=== PATIENT | female | born 1970 | race Caucasian/White ===

== ENCOUNTER → 2016-09-07 | Outpatient (CLI) | payer OTHER ==
[2016-09-07 08:29] LABS: Blood Urea Nitrogen 16 mg/dL (7-17); Non-African American GFR(MDRD) >60 (>60 ml/min/1.73 sqM)
--- NOTE | 2016-09-07 12:19 | CT ---
EXAMINATION TYPE: CT ChestAbdPelvis w con DATE OF EXAM: 09/07/2016 10:25 AM INDICATION: Hodgkins Lymphoma COMPARISON: 09/07/2015 CT DLP: 2010 mGycm CONTRAST: Performed with Oral Contrast and with IV Contrast, patient injected with 100 ml mL of Omnipaque 300. TECHNIQUE: Axial images at 5 mm thick sections. Reconstructed images in the coronal plane. Delayed images through the kidneys. FINDINGS: CT CHEST: Portion of the thyroid visualized is some mild heterogeneity within the mid right lobe thyroid. This is stable. There is a stable posterior left apical peripheral 0.7 cm nodule. Series 4 there is a 0.4 cm thickeni ng of the left pleural margin. Right middle lobe density appears stable suspicious No enlarged mediastinal or hilar adenopathy is evident. The ascending aorta diameter at the level of the main pulmonary artery is 3.2 cm. The main pulmonary artery diameter at the bifurcation is 2.[address] ABDOMEN: Liver: Normal Spleen: Normal Pancreas: Normal Adrenal glands: The adrenal glands are normal. Gallbladder: Surgically absent. Kidneys: No masses are evident. No hydronephrosis is present. No cysts are present. Delayed images were obtained through the kidneys, which remain unremarkable. Aorta: Vascular calcification is within the aorta. Inferior vena cava: Normal. CT PELVIS: There is a 0.8 cm lymph node in the left obturator canal. Suspicious iliac chain or inguin al adenopathy is not evident. Loops of bowel within the abdomen and pelvis are normal. There are loops of bowel which are incom pletely distended or lack oral contrast limiting their evaluation. Appendix: Normal as visualized. Urinary bladder: Normal. Genitourinary structures: Uterus is not identified. A 1.6 cm right ovarian cyst may be present. Serie s 3 image 1 3 Osseous structures: No suspicious lytic or sclerotic lesions. IMPRESSIONS: 1. No suspicious enlarged lymphadenopathy. CT criteria. 2. 1.6 cm right ovarian cyst. 3. Stable lung nodules.
== END | disposition home or self-care (01) ==
LOC: RADCTMAIN 07:47
PROVIDERS: ATTEND Internal Medicine Hematology & Oncology
DX: C81.90 Hodgkin lymphoma, unspecified, unspecified site (principal); N83.201 Unspecified ovarian cyst, right side; R91.8 Other nonspecific abnormal finding of lung field
CPT/HCPCS: 82565; 84520; 71260; 74177; 36415; Q9967

== ENCOUNTER → 2017-03-10 | Outpatient (CLI) | payer OTHER ==
[2017-03-10 11:40] LABS: Blood Urea Nitrogen 11 mg/dL (7-17); Non-African American GFR(MDRD) >60 (>60 ml/min/1.73 sqM)
--- NOTE | 2017-03-10 15:39 | CT ---
EXAMINATION TYPE: CT ChestAbdPelvis w con DATE OF EXAM: 03/10/2017 INDICATION: lymphoma follow up COMPARISON: 09/07/2016 CT DLP: 1021.5 mGycm CONTRAST: Performed with Oral Contrast and with IV Contrast, patient injected with 100 mL of Omnipaque 300. TECHNIQUE: Axial images at 5 mm thick sections. Reconstructed images in the coronal plane. Delayed images through the kidneys. FINDINGS: CT CHEST: Portion of the thyroid visualized is normal. There is a 0.4 cm pleural-based nodule in the posterior left upper lobe. This area appears smaller th an the comparison. Scattered lymph nodes are within the axillary regions appear stable. No enlarging lymphadenopathy is evident. There is a stable small pretracheal lymph node present No enlarged mediastinal or hilar adenopathy is evident. The ascending aorta diameter at the level of the main pulmonary artery is 2.8 cm. The main pulmonary artery diameter at the bifurcation is 2.[address] ABDOMEN: Liver: Normal Spleen: Normal Pancreas: Normal Adrenal glands: The adrenal glands are normal. Gallbladder: Surgically absent Kidneys: No masses are evident. No hydronephrosis is present. No cysts are present. Delayed images were obtained through the kidneys, which remain unremarkable. Aorta: Vascular calcification is within the aorta. Inferior vena cava: Normal. CT PELVIS: Loops of bowel within the abdomen and pelvis are normal. There are loops of bowel which are incom pletely distended or lack oral contrast limiting their evaluation. Fecal debris is within the colon. Appendix: Not visualized Urinary bladder: Normal. Genitourinary structures: There is thickening through the distal vaginal region. Pelvic examination i s recommended. Consider the possibility of anal anomaly. Perirectal adenopathy is not identified. Osseous structures: No suspicious lytic or sclerotic lesions. IMPRESSIONS: 1. There appears to be some increase in thickening in the region of the anus and lower perineal regio n. Direct visualization and pelvic exam is recommended. 2. Enlarging lymphadenopathy is not identified. Scattered small lymph nodes are discussed above.
== END | disposition home or self-care (01) ==
LOC: RADCTMAIN 10:45
PROVIDERS: ATTEND Internal Medicine Hematology & Oncology
DX: C81.98 Hodgkin lymphoma, unspecified, lymph nodes of multiple sites (principal)
CPT/HCPCS: 82565; 84520; 71260; 74177; 36415; Q9967

== ENCOUNTER 2017-04-06 07:14 | Day surgery (SDC) | payer OTHER ==
[2017-04-04 14:16] VITALS: BMI 33.4
[~2017-04-06 07:14] MED LIST: LACTATED RINGERS 1,000 ML IV SCH; LIDOCAINE 1% 20 ML VIAL (10MG/ML) FOR IV START INTRADERMA PRN
[2017-04-06 07:35] VITALS: TEMP 97.9
[2017-04-06 07:42] LABS: Glucose,Whole Blood 254 mg/dL (75-99)
[2017-04-06] MEDS ORDERED: PROPOFOL 10 MG/ML 20 ML VIAL IV ONE (07:48)
[2017-04-06] MEDS ORDERED: LIDOCAINE 1% INJ 10MG/ML (20 ML MDV) ONE (07:48)
--- NOTE | 2017-04-06 07:53 | P.GSHP ---
History of Present Illness H&P Date: 04/06/17 Chief Complaint: Diarrhea, proctitis This is a 46-year-old female who had a recent change in her bowel habits. The patient had frequent bowel movement. She had a CAT scan performed shows thickening of the rectum and descending colon. She presents today for colonoscopy. Past Medical History Past Medical History: Cancer, Diabetes Mellitus Additional Past Medical History / Comment(s): HX HODGKINS LYMPHOMA W/ CHEMO- 2011. RECENT ? CAT SCAN. History of Any Multi-Drug Resistant Organisms: MRSA Date of last positivie culture/infection: 2011 MDRO Source:: SHOULDERS Past Surgical History: Cholecystectomy, Orthopedic Surgery, Tubal Ligation Additional Past Surgical History / Comment(s): RT SHOULDER SURGERY. JYOTI OOPHORECTOMY. Past Anesthesia/Blood Transfusion Reactions: No Reported Reaction Smoking Status: Current every day smoker - Past Family History Mother Family Medical History: Cancer Brother(s) Family Medical History: Cancer Medications and Allergies Home Medications Medication Instructions Recorded Confirmed Type metFORMIN HCL [Glucophage] 500 mg PO BID 05/27/14 04/06/17 History oxyCODONE-APAP 10-325MG [Percocet 1 tab PO Q6HR PRN 04/04/17 04/06/17 History 10-325 mg] Allergies Allergy/AdvReac Type Severity Reaction Status Date / Time No Known Allergies Allergy Verified 04/04/17 13:47 Surgical - Exam Vital Signs Temp Pulse Resp BP Pulse Ox 97.9 F 84 16 117/79 95 04/06/17 07:29 04/06/17 07:29 04/06/17 07:29 04/06/17 07:29 04/06/17 07:29 - General well developed, no distress - Eyes PERRL - ENT normal pinna - Neck no masses - Respiratory normal expansion - Cardiovascular Rhythm: regular - Abdomen Abdomen: soft, non tender Results Computed tomography scan shows thickening of the rectum and descending colon - Labs Abnormal Lab Results - Last 24 Hours (Table) 04/06/17 Range/Units 07:39 POC Glucose (mg/dL) 254 H (75-99) mg/dL Assessment and Plan Plan: Proctitis, colitis. We'll perform colonoscopy.
--- NOTE | 2017-04-06 08:10 | P.OP ---
Date of Procedure: 04/06/17 Preoperative Diagnosis: Proctitis Postoperative Diagnosis: Normal colonoscopy Rectal biopsy pathology pending Procedure(s) Performed: Colonoscopy Anesthesia: MAC Surgeon: Murali Sotelo Pathology: other (Rectum) Condition: stable Disposition: PACU Description of Procedure: The patient's placed on the endoscopy table in the lateral position. She received IV sedation. Digital rectal exam was performed which revealed no abnormalities. Flexible colonoscope was then placed patient anus and passed throughout the entire colon. The ileocecal valve was visualized. The cecum, ascending and transverse colon appeared normal. In the descending and sigmoid colon appeared normal. Scope was then brought back the rectum and this appeared normal. Due the patient's CAT scans findings of thickening rectum and a random biopsies were performed. Scope was then withdrawn through the anus and removed from the patient.
[2017-04-06 08:18] VITALS: RESP 18
[2017-04-06 08:21] LABS: Glucose,Whole Blood 280 mg/dL (75-99)
[2017-04-06 08:33] VITALS: BP 111/76; PULSE 75
== END 2017-04-06 08:43 | disposition home or self-care (01) ==
LOC: ORWHC2ENDO 07:14
PROVIDERS: ATTEND Surgery
DX: R19.7 Diarrhea, unspecified (principal); E11.9 Type 2 diabetes mellitus without complications; F17.200 Nicotine dependence, unspecified, uncomplicated; Z79.84 Long term (current) use of oral hypoglycemic drugs; Z85.72 Personal history of non-Hodgkin lymphomas; Z86.14 Personal history of Methicillin resistant Staphylococcus aureus infection
CPT/HCPCS: 88305; 45380; J2001; J2704

== ENCOUNTER 2021-03-11 07:00 | Day surgery (SDC) | payer MEDICARE, OTHER ==
[2021-03-08 13:20] VITALS: BMI 33.6
[~2021-03-11 07:00] MED LIST changes: -LIDOCAINE 1% 20 ML VIAL (10MG/ML) FOR IV START INTRADERMA PRN
[2021-03-11 07:17] VITALS: TEMP 97.8
[2021-03-11] MEDS ORDERED: LACTATED RINGERS 1,000 ML IV ONE (07:17)
[2021-03-11 07:26] LABS: Glucose,Whole Blood 66 mg/dL (75-99)
[2021-03-11] MEDS ORDERED: DEXTROSE 50% SYRINGE 50 ML IVP ONE (07:30)
[2021-03-11] MEDS ORDERED: PROPOFOL 10 MG/ML 20 ML VIAL IV ONE (07:57)
--- NOTE | 2021-03-11 08:03 | P.GSHP ---
History of Present Illness H&P Date: 03/11/21 Chief Complaint: Screening Colonoscopy 's is a 50-year-old female who presents today for screening colonoscopy. Patient denies any significant GI complaints. Past Medical History Past Medical History: Cancer, Diabetes Mellitus Additional Past Medical History / Comment(s): HX HODGKINS LYMPHOMA W/ CHEMO- 2011. History of Any Multi-Drug Resistant Organisms: MRSA Date of last positivie culture/infection: 2011 MDRO Source:: SHOULDERS Past Surgical History: Cholecystectomy, Hysterectomy, Orthopedic Surgery, Tubal Ligation Additional Past Surgical History / Comment(s): RT SHOULDER SURGERY. JYOTI OOPHORECTOMY. Past Anesthesia/Blood Transfusion Reactions: No Reported Reaction Smoking Status: Current every day smoker - Past Family History Mother Family Medical History: Cancer Brother(s) Family Medical History: Cancer Medications and Allergies Home Medications Medication Instructions Recorded Confirmed Type metFORMIN HCL [Glucophage] 500 mg PO BID 05/27/14 03/08/21 History Ibuprofen 200 mg PO DAILY PRN 03/08/21 03/08/21 History Insulin (Unkn. Name) 5 units INJ 1200 03/08/21 03/08/21 History Allergies Allergy/AdvReac Type Severity Reaction Status Date / Time No Known Allergies Allergy Verified 03/08/21 13:13 Surgical - Exam Vital Signs Temp Pulse Resp BP Pulse Ox 97.8 F 80 18 111/73 98 03/11/21 07:16 03/11/21 07:16 03/11/21 07:16 03/11/21 07:16 03/11/21 07:16 - General well developed, well nourished, no distress - Eyes PERRL - ENT normal pinna - Neck no masses - Respiratory normal expansion - Cardiovascular Rhythm: regular - Abdomen Abdomen: soft, non tender Results - Labs Abnormal Lab Results - Last 24 Hours (Table) 03/11/21 Range/Units 07:24 POC Glucose (mg/dL) 66 L (75-99) mg/dL Assessment and Plan Assessment: We'll perform screening colonoscopy.
--- NOTE | 2021-03-11 08:17 | P.OP ---
Date of Procedure: 03/11/21 Preoperative Diagnosis: Screening colonoscopy Procedure(s) Performed: Mild diverticulosis Poor colonic prep Anesthesia: MAC Surgeon: Murali Sotelo Pathology: none sent Condition: stable Disposition: PACU Description of Procedure: The patient's placed on the endoscopy table in the lateral position. She received IV sedation. Digital rectal exam was performed which revealed no abnormalities. The possible colonoscope was then placed patient anus and passed throughout the entire colon. Ileocecal valve was visualized. The patient had a large amount of liquid stool colon which limited the view of the mucosa. The ascending colon, transverse colon and descending colon appeared normal. In the sigmoid colon was a few scattered diverticuli. The scope was then brought back the rectum and this appeared normal. Scope was withdrawn for patient.
[2021-03-11 08:27] LABS: Glucose,Whole Blood 122 mg/dL (75-99)
[2021-03-11 08:36] VITALS: RESP 16
[2021-03-11 08:49] VITALS: BP 111/71; PULSE 76
== END 2021-03-11 09:03 | disposition home or self-care (01) ==
LOC: ORWHC2ENDO 07:00
PROVIDERS: ATTEND Surgery
DX: Z12.11 Encounter for screening for malignant neoplasm of colon (principal); K57.90 Diverticulosis of intestine, part unspecified, without perforation or abscess without bleeding; E11.9 Type 2 diabetes mellitus without complications; Z85.71 Personal history of Hodgkin lymphoma; Z92.21 Personal history of antineoplastic chemotherapy; F17.210 Nicotine dependence, cigarettes, uncomplicated; Z79.4 Long term (current) use of insulin; Z79.899 Other long term (current) drug therapy; F32.9 Major depressive disorder, single episode, unspecified
CPT/HCPCS: J2704; G0121

== ENCOUNTER → 2021-10-18 | Outpatient (CLI) | payer MEDICARE ==
--- NOTE | 2021-10-20 15:00 | ECHOF ---
Referral Reason:R01.1 MEASUREMENTS -------- HEIGHT: 154.9 cm WEIGHT: 79.4 kg BP: IVSd: 0.9 cm (0.6 - 1.1) LVIDd: 4.1 cm (3.9 - 5.3) LVPWd: 1.0 cm (0.6 - 1.1) IVSs: 1.1 cm LVIDs: 2.8 cm LVPWs: 1.3 cm LAESV Index (A-L): 14.44 ml/m Ao Diam: 3.1 cm (2.0 - 3.7) AV Cusp: 1.8 cm (1.5 - 2.6) LA Diam: 2.8 cm (2.7 - 3.8) MV EXCURSION: 19.197 mm (> 18.000) MV EF SLOPE: 126 mm/s (70 - 150) EPSS: 1.0 cm MV E Mode: 0.76 m/s MV DecT: 156 ms MV A Mode: 1.13 m/s MV E/A Ratio: 0.67 RAP: 5.00 mmHg RVSP: 8.66 mmHg FINDINGS -------- This was a technically good study. The left ventricular size is normal. Left ventricular wall thickness is normal. Overall left vent ricular systolic function is normal with, an EF between 55 - 60 %. The diastolic filling pattern is normal for the age of the patient 11.08. The right ventricle is normal in size. The left atrial size is normal. Normal LA size by volume 22+/-6 ml/m2. The right atrial size is normal. The aortic valve is trileaflet and appears structurally normal. There is trace mitral regurgitation. The tricuspid valve appears structurally normal. Trace tricuspid regurgitation present. Right yessenia tricular systolic pressure is normal at < 35 mmHg. There is no pulmonic regurgitation present. The aortic root size is normal. Normal inferior vena cava with normal inspiratory collapse consistent with estimated right atrial pre ssure of 5 mmHg. There is no pericardial effusion. CONCLUSIONS -------- 1. The left ventricular size is normal. 2. Left ventricular wall thickness is normal. 3. Overall left ventricular systolic function is normal with, an EF between 55 - 60 %. 4. The diastolic filling pattern is normal for the age of the patient 11.08 5. There is trace mitral regurgitation. 6. Trace tricuspid regurgitation present. 7. There is no pericardial effusion. [employer]SEM[employer]Y SUPERVISOR: Mitra Gunn RDCS
== END | disposition home or self-care (01) ==
LOC: RADECHMAIN 14:42
PROVIDERS: ATTEND Family Medicine
DX: I08.1 Rheumatic disorders of both mitral and tricuspid valves (principal)
CPT/HCPCS: 93306

== ENCOUNTER 2022-09-28 12:46 | Day surgery (SDC) | payer MEDICARE ==
[2022-09-23 14:52] VITALS: BMI 30.2
[~2022-09-28 12:46] MED LIST changes: +ALPRAZolam 0.25 MG TAB PO PRN; +ALPRAZolam 0.5 MG TAB PO PRN; +ASPIRIN 325 MG TAB PO PRN; +HEPARIN SODIUM,PORCINE 10,000 UNIT in SODIUM CHLORIDE 0.9% 1,000 ML IRRIGATION PRN; +HEPARIN SODIUM,PORCINE 2,500 UNIT in SODIUM CHLORIDE 0.9% 250 ML IRRIGATION PRN; -LACTATED RINGERS 1,000 ML IV SCH; +SODIUM CHLORIDE 0.9% 1,000 ML in EMPTY BAG 1 BAG IV ONE; +ZOLPIDEM 5 MG TAB PO PRN
[2022-09-28 13:07] LABS: Glucose,Whole Blood 108 mg/dL (70-110)
[2022-09-28 13:12] VITALS: RESP 16; TEMP 98.8
[2022-09-28] MEDS ORDERED: SODIUM CHLORIDE 0.9% 1,000 ML IV ONE (13:12)
[2022-09-28 13:36] LABS: Basophils # (A) 0.2 k/uL (0-0.2); Basophils % (A) 1 %; Eosinophils # (A) 0.4 k/uL (0-0.7); Eosinophils % (A) 3 %; HCT 48.6 % (34.0-46.0); Lymphocytes # (A) 4.7 k/uL (1.0-4.8); Lymphocytes % (A) 31 %; MCH 30.9 pg (25.0-35.0); MCHC 32.9 g/dL (31.0-37.0); Mean Platelet Volume 8.3; Monocytes # (A) 0.7 k/uL (0-1.0); Monocytes % (A) 5 %; Neutrophils # (A) 8.5 k/uL (1.3-7.7); Neutrophils % (A) 57 %; Platelet Count 314 k/uL (150-450); RBC 5.17 m/uL (3.80-5.40); RDW 13.2 % (11.5-15.5); WBC 14.8 k/uL (3.8-10.6)
[2022-09-28 13:48] LABS: African American GFR (CKD) >90 (>60 ml/min/1.73 sqM); Anion Gap 8 mmol/L; Blood Urea Nitrogen 12 mg/dL (7-17); Calcium 9.1 mg/dL (8.4-10.2); Carbon Dioxide 27 mmol/L (22-30); Chloride 105 mmol/L (98-107); Glucose 106 mg/dL (74-99); Non-African American GFR(CKD) >90 (>60 ml/min/1.73 sqM); Sodium 140 mmol/L (137-145)
[2022-09-28 14:22] LABS: Potassium 4.2 mmol/L (3.5-5.1)
[2022-09-28] MEDS ORDERED: VERAPAMIL 2.5 MG/ML 2 ML AMP ONE (14:40)
[2022-09-28] MEDS ORDERED: MIDAZOLAM 2 MG/2 ML VIAL IVP ONE (14:51)
[2022-09-28] MEDS ORDERED: fentaNYL (PF) 50 MCG/1 ML VIAL IVP ONE (14:51)
[2022-09-28] MEDS ORDERED: LIDOCAINE 1% INJ 10MG/ML (5 ML VIAL-PF) INTRAARTIC ONE (14:52)
[2022-09-28] MEDS ORDERED: fentaNYL (PF) 50 MCG/ML 2 ML AMP ONE (14:54)
[2022-09-28] MEDS ORDERED: VERAPAMIL SYRINGE (5 MG/10 ML) INTRAARTER ONE (14:57)
[2022-09-28] MEDS ORDERED: HEPARIN SODIUM 1,000 UN/ML (10ML VL) IV ONE (14:58)
[2022-09-28] MEDS ORDERED: NITROGLYCERIN 1000MCG/10ML SYRINGE INTRAARTER ONE (14:58)
[2022-09-28] MEDS ORDERED: IOPAMIDOL-370 125ML BTL INJ ONE (15:24)
--- NOTE | 2022-09-28 15:45 | P.OP ---
Date of Procedure: 09/28/22 Description of Procedure: Preoperative diagnosis: [Left subclavian stenosis, severe peripheral artery disease [place] 3] Postoperative diagnosis: Same Procedure: [#1 ultrasound guided right radial artery access #2 aortic arch angiogram #3 aortogram with runoff #4 moderate conscious sedation 22 minutes, personally monitored certified RN administration with hemodynamic monitoring] Surgeon: Justine France D.O. EBL: Less than 5 mL[] IV fluids: [See records] Urine output: [Not measured] Drains: [None] Complications: [None] Condition: [Stable to recovery] Operative indication and findings: [Patient is a 52-year-old female has severe peripheral arterial disease with worsened right lower extremity than the left. She can't walk very far prior to having pain. She was found to have absent femoral pulse on the right therefore an aortogram performed. Given her findings as well as her absent left radial pulse, she was offered an aortogram. Risks and benefits were discussed. She seemingly understood and wished to proceed] Procedure in detail: [Patient was taken to the special suite and placed in supine position. The right breast was prepped and draped in usual sterile fashion. A procedure time was performed, all parties are in agreement. Using ultrasound, the right radial artery was identified. It was found be patent and compressible without evidence of overt calcification. Permanent images stored. The skin overlying was anesthetized. A micro-Rx needle was used and using Seldinger technique a 5 Center sheath was placed. Catheters and wires were used access and select the ascending aorta. An aortogram was performed of the aortic arch. Catheters and wires were then utilized to select the abdominal aorta. Aortogram was performed and sequential runoffs. Catheters and wires were then removed. The sheath was removed and a TR band was placed. Findings the aorta appeared normal in course and caliber. There is a type I aorta. Visualized portions of the right subclavian, vertebral, common carotid and brachiocephalic artery appear patent. The orifice then visualized portions of the left carotid artery appear patent without significant disease. The left subclavian has a high-grade narrowing a few centimeters beyond its takeoff measuring about 95%. There is flow beyond this. There is no easily visualize vertebral artery. Further portions of the aorta thoracic section appear normal. The abdominal aorta appears patent. There are multiple visualized lumbar ar teries. Bilateral renal arteries appear patent without significant disease. The superior mesenteric artery appears patent. On the right, there is occlusion of the common iliac artery with reconstitution via the internal iliac vessels. Further portions of the external iliac and common femoral artery appear patent but diminutive. On the left there are some areas of high-grade stenosis of the common iliac artery or further visualized portions of the internal and external iliac artery appear patent without significant disease. On the left the common, superficial and deep femoral arteries appear patent without significant disease. On the right, the common, superficial and deep femoral arteries appear patent however severely diminished and contrast flow and visualization. The bilateral superficial femoral and popliteal arteries appear patent without significant disease. On the left, there appears to be a high takeoff of the anterior tibial artery via the mid popliteal artery. There is a long TP trunk. Vessels are visualized midcalf. On the right, again appears to have a high anterior tibial artery takeoff long tibial peroneal trunk. There is very difficult visualization of vessels beyond the midcalf due to lack of contrast flow.] Plan - Discharge Summary Discharge Rx Participant: No New Discharge Prescriptions: No Action Losartan [Cozaar] 25 mg PO DAILY Insulin Glargine,Hum.rec.anlog [Lantus Solostar Pen] 45 units SQ W/LUNCH Rosuvastatin [Crestor] 5 mg PO DAILY Gabapentin 300 mg PO TID PRN PRN Reason: Pain Zolpidem [Ambien] 5 mg PO HS PRN PRN Reason: Insomnia Escitalopram [Lexapro] 10 mg PO DAILY Discharge Medication List Escitalopram [Lexapro] 10 mg PO DAILY 09/23/22 [History] Gabapentin 300 mg PO TID PRN 09/23/22 [History] Insulin Glargine,Hum.rec.anlog [Lantus Solostar Pen] 45 units SQ W/LUNCH 09/23/22 [History] Losartan [Cozaar] 25 mg PO DAILY 09/23/22 [History] Rosuvastatin [Crestor] 5 mg PO DAILY 09/23/22 [History] Zolpidem [Ambien] 5 mg PO HS PRN 09/23/22 [History] Activity/Diet/Wound Care/Special Instructions: Resume regular activity. Follow-up in 1-2 weeks. Resume regular diet. Resume home medications. May shower in 48 hours. Discharge Disposition: HOME SELF-CARE
--- NOTE | 2022-09-28 15:52 | IR ---
EXAMINATION TYPE: IR angio abdominal w runoff DATE OF EXAM: 09/28/2022 COMPARISON: NONE HISTORY: Fluoroscopy time. Fluoroscopy was provided to the referring clinician.
[2022-09-28 18:10] VITALS: BP 102/70; PULSE 73
== END 2022-09-28 19:42 | disposition home or self-care (01) ==
LOC: CATHCVL 12:46 → 6NMEDSUR 15:13 → CATHCVL 19:42
PROVIDERS: ATTEND Surgery
DX: I70.223 Atherosclerosis of native arteries of extremities with rest pain, bilateral legs (principal); I77.1 Stricture of artery; Z85.71 Personal history of Hodgkin lymphoma; Z92.21 Personal history of antineoplastic chemotherapy; E11.51 Type 2 diabetes mellitus with diabetic peripheral angiopathy without gangrene; Z79.84 Long term (current) use of oral hypoglycemic drugs; Z79.899 Other long term (current) drug therapy; Z83.3 Family history of diabetes mellitus; F17.210 Nicotine dependence, cigarettes, uncomplicated
CPT/HCPCS: 36221; 36200; 75625; 75716; 76937; 80048; 85025; C1769 ×3; C1894; J2250; J2001; J1644; Q9967; J3010

== ENCOUNTER → 2022-11-03 | Day surgery (SDC) | payer MEDICARE ==
[~2022-11-03] MED LIST changes: +ACETAMINOPHEN TAB 500 MG TAB PO PRN; -ALPRAZolam 0.5 MG TAB PO PRN; -ASPIRIN 325 MG TAB PO PRN; +ASPIRIN 81 MG PO STA; +CLOPIDOGREL 75 MG TAB PO STA; +GABAPENTIN 300 MG CAP PO SCH; +HEPARIN SODIUM 1,000 UN/ML (10ML VL) IV ONE; +HEPARIN SODIUM 1,000 UN/ML (10ML VL) ONE; -HEPARIN SODIUM,PORCINE 10,000 UNIT in SODIUM CHLORIDE 0.9% 1,000 ML IRRIGATION PRN; -HEPARIN SODIUM,PORCINE 2,500 UNIT in SODIUM CHLORIDE 0.9% 250 ML IRRIGATION PRN; +IOPAMIDOL-370 100ML BTL INJ ONE; +LIDOCAINE 1% INJ 10MG/ML (20 ML MDV) SQ ONE; +LIDOCAINE 1% INJ 10MG/ML (5 ML VIAL-PF) SQ ONE; +MIDAZOLAM 2 MG/2 ML VIAL IV ONE; +ONDANSETRON 4 MG/2 ML VIAL IVP ONE; +ONDANSETRON 4 MG/2 ML VIAL ONE; +SODIUM CHLORIDE 0.9% 1,000 ML IV ONE; -ZOLPIDEM 5 MG TAB PO PRN; +fentaNYL (PF) 50 MCG/ML 2 ML AMP ONE
[2022-11-03 06:32] LABS: Basophils # (A) 0.1 k/uL (0-0.2); Basophils % (A) 1 %; Eosinophils # (A) 0.4 k/uL (0-0.7); Eosinophils % (A) 4 %; HCT 45.1 % (34.0-46.0); HGB 15.5 gm/dL (11.4-16.0); Lymphocytes # (A) 4.4 k/uL (1.0-4.8); Lymphocytes % (A) 37 %; MCH 31.5 pg (25.0-35.0); MCHC 34.4 g/dL (31.0-37.0); MCV 91.4 fL (80.0-100.0); Mean Platelet Volume 8.1; Monocytes # (A) 0.6 k/uL (0-1.0); Monocytes % (A) 5 %; Neutrophils # (A) 6.1 k/uL (1.3-7.7); Neutrophils % (A) 52 %; Platelet Count 265 k/uL (150-450); RBC 4.94 m/uL (3.80-5.40); RDW 13.4 % (11.5-15.5); WBC 11.9 k/uL (3.8-10.6)
[2022-11-03 06:33] VITALS: RESP 16; TEMP 98.8
[2022-11-03 06:36] LABS: Glucose,Whole Blood 109 mg/dL (70-110)
[2022-11-03 07:02] LABS: African American GFR (CKD) >90 (>60 ml/min/1.73 sqM); Anion Gap 7 mmol/L; Blood Urea Nitrogen 15 mg/dL (7-17); Calcium 9.2 mg/dL (8.4-10.2); Carbon Dioxide 26 mmol/L (22-30); Chloride 107 mmol/L (98-107); Glucose 107 mg/dL (74-99); Non-African American GFR(CKD) >90 (>60 ml/min/1.73 sqM); Sodium 140 mmol/L (137-145)
[2022-11-03] MEDS: fentaNYL (PF) 50 MCG/ML 2 ML AMP IV ONE ×2 (07:51→08:42)
--- NOTE | 2022-11-03 09:53 | P.OP ---
Date of Procedure: 11/03/22 Description of Procedure: Preoperative diagnosis: Severe lifestyle limiting claudication, bilateral iliac occlusive disease Postoperative diagnosis: Same Procedure: #1 ultrasound guided bilateral common femoral artery access #2 bilateral iliofemoral angiogram, aortogram #3 bilateral balloon expanding covered stent placement of the common iliac arteries. Right common iliac artery 7 x 39 balloon expandable covered, 7 x 80 self- expanding uncovered Left common iliac artery 7 x 59 balloon expandable covered stent #4 74 minutes of monitored conscious sedation, certified RN administration and personal hemodynamic monitoring Surgeon: Justine France D.O. EBL: Less than 20 mL IV fluids: See records Urine output: Not measured Drains: None Complications: None immediately apparent Condition: Stable to recovery Operative indication and findings: Patient is a 52-year-old female with severe lifestyle limiting claudication bordering on rest pain worsen her right lower extremity than her left. She had previous diagnostic imaging which did show 100% occlusion of the right common iliac artery and high-grade stenosis of the left common iliac artery. She presents today for intervention. Procedure in detail: Patient was taken to the special suite and placed in supine position. The bilateral groins are prepped and draped in usual sterile fashion. A preprocedure timeout was performed, all parties are in agreement. Using ultrasound, the right common femoral artery was identified. It was patent wi thout significant calcific disease. Permanent images stored. skin overlying was anesthetized 1% lidocaine plain and a micro-access needle was used to access the vessel under ultrasound guidance. Seldinger technique was used to place a 5- Lithuanian sheath. A right iliofemoral angiogram was performed redemonstrating the known area of occlusion. Catheters and wires were then used to traverse the iliac artery into the aorta. Catheters were passed and confirmatory luminal gain was achieved. Attention was then turned towards the left common femoral artery and again imaging showed patent vessel without significant calcific disease. Permanent images stored. Seldinger technique was used to place a 5- [place]ian sheath. Catheters wires were again used to traverse the aorta and repeat imaging was performed. At that point both sheaths were upsized to a 7-[place]ian sheath. Multiple measurements were taken and the decision to place a balloon external stent bilaterally was made. On the right a 7 x 30 balloon expandable covered stent was placed on the left a 7 x 59 balloon external covered stent was placed. Repeat imaging was shown, there was some diminished flow through the right iliac system and evidence of possible dissection through the external iliac therefore a noncovered self-expanding 7 x 80 stent was placed. Allowed for significant improvement of the visualized portions of the vessel without evidence of dissection. There was an area of mild narrowing and likely occlusion of the sheath, the sheath was retracted and repeat iliofemoral angiogram was performed showing brisk flow through the iliac system. A repeat angiogram via the left side was performed which showed brisk flow through the iliofemoral and proximal superficial femoral vessels. At that point catheters and wires were removed. Vascular closure devices were deployed in standard fashion the bilateral groins with adequate hemostasis. At the conclusion of the procedure the patient has a strong biphasic DP on the right and a palpable DP on the left. This is improved from previous. Plan - Discharge Summary Discharge Rx Participant: No New Discharge Prescriptions: New Clopidogrel [Plavix] 75 mg PO DAILY #30 tablet No Action Losartan [Cozaar] 25 mg PO HS Insulin Glargine,Hum.rec.anlog [Lantus Solostar Pen] 45 units SQ W/LUNCH Rosuvastatin [Crestor] 5 mg PO HS Gabapentin 300 mg PO TID Zolpidem [Ambien] 5 mg PO HS PRN PRN Reason: Insomnia Escitalopram [Lexapro] 10 mg PO DAILY Discharge Medication List Escitalopram [Lexapro] 10 mg PO DAILY 09/23/22 [History] Gabapentin 300 mg PO TID 09/23/22 [History] Insulin Glargine,Hum.rec.anlog [Lantus Solostar Pen] 45 units SQ W/LUNCH 09/23/22 [History] Losartan [Cozaar] 25 mg PO HS 09/23/22 [History] Rosuvastatin [Crestor] 5 mg PO HS 09/23/22 [History] Zolpidem [Ambien] 5 mg PO HS PRN 09/23/22 [History] Clopidogrel [Plavix] 75 mg PO DAILY #30 tablet 11/03/22 [Rx] Follow up Appointment(s)/Referral(s): Justine France DO [STAFF PHYSICIAN] - 1 Week Patient Instructions/Handouts: Peripheral Vascular Disease (ED), Peripheral Artery Disease (ED), Moderate Sedation (DC), Peripheral Vascular Stent Placement (DC) Activity/Diet/Wound Care/Special Instructions: *NO LIFTING, PUSHING, OR PULLING ANYTHING OVER 5 POUNDS FOR 5 DAYS *NO DRIVING FOR 3 DAYS *YOU CAN REMOVE YOUR DRESSING TOMORROW AND SHOWER BUT DO NOT SUBMERSE YOUR PUNCTURE SITE IN WATER FOR A FEW DAYS TO PREVENT INFECTION - SO NO TUB BATHS, POOLS, HOT TUBS, DISHES...ETC *ANY SIGNS OF BLEEDING (HARDNESS, SWELLING, OR EXCESSIVE BRUISING) HOLD DIRECT PRESSURE ON YOUR PUNCTURE SITE AND COME TO THE NEAREST EMERGENCY ROOM TO GET YOUR PUNCTURE SITE LOOKED AT - DO NOT DRIVE YOURSELF! EITHER CALL EMS OR HAVE SOMEONE DRIVE YOU! Discharge Disposition: HOME SELF-CARE
--- NOTE | 2022-11-03 11:55 | IR ---
EXAMINATION TYPE: IR stent intravas non coronary DATE OF EXAM: 11/03/2022 COMPARISON: NONE HISTORY: Fluoroscopy time. Fluoroscopy was provided to the referring clinician.
[2022-11-03 14:06] VITALS: PULSE 78
[2022-11-03 14:17] VITALS: BP 131/61
== END | disposition home or self-care (01) ==
LOC: CATHCVL 05:55
PROVIDERS: ATTEND Surgery
DX: I73.9 Peripheral vascular disease, unspecified (principal)
CPT/HCPCS: 37221; 37223; 80048; 85025; C1894 ×2; C1769 ×5; C1876; C1874; J2250; J2405; J2001; J3010; J1644; Q9967

== ENCOUNTER 2023-01-03 22:01 | Emergency (ER) | payer MEDICARE ==
[2023-01-03] MEDS ORDERED: KETOROLAC 15 MG/ML 1 ML VIAL IVP STA (22:55)
[2023-01-03] MEDS ORDERED: ONDANSETRON 4 MG/2 ML VIAL IVP STA (22:55)
[2023-01-03] MEDS ORDERED: SODIUM CHLORIDE 0.9% 1,000 ML IV ONE (22:55)
--- NOTE | 2023-01-03 23:32 | XR ---
EXAM: XR Chest, 2 Views CLINICAL HISTORY: ITS.REASON XR Reason: Cough, SOB TECHNIQUE: Frontal and lateral views of the chest. COMPARISON: No previous studies. FINDINGS: Lungs: Unremarkable. No consolidative change. Pleural space: Unremarkable. No pneumothorax. No pleural effusions. Heart: Unremarkable. No cardiomegaly. Mediastinum: Cardiomediastinal silhouette unremarkable. Bones/joints: Osteopenia. Upper abdomen: Eventration of the right hemidiaphragm. IMPRESSION: Are no active disease.
--- NOTE | 2023-01-03 23:52 | ED ---
General Adult HPI - General Chief complaint: Upper Respiratory Infection Stated complaint: dry heaves Time Seen by Provider: 01/03/23 22:16 Source: patient Mode of arrival: ambulatory Limitations: no limitations - History of Present Illness Initial comments: This is a 52-year-old female with a past medical history including hypertension presents emergency department for cough as well as "feeling like crap." The patient stated last 24 hours she has had associated cough and body aches and intermittent chills without any noted fevers. The patient did state that her son did have the flu last week but did not know of any other sick contacts at this time. The patient stated that she felt as if she had posterior nasal drainage and continued coughing and episodes of posttussive emesis. The patient denied any other acute pain or complaints at this time. The patient was resting in bed comfortably. - Related Data Home Medications Medication Instructions Recorded Confirmed Escitalopram [Lexapro] 10 mg PO DAILY 09/23/22 10/28/22 Gabapentin 300 mg PO TID 09/23/22 10/28/22 Insulin Glargine,Hum.rec.anlog 45 units SQ W/LUNCH 09/23/22 10/28/22 [Lantus Solostar Pen] Losartan [Cozaar] 25 mg PO HS 09/23/22 10/28/22 Rosuvastatin [Crestor] 5 mg PO HS 09/23/22 10/28/22 Zolpidem [Ambien] 5 mg PO HS PRN 09/23/22 10/28/22 Aspirin 81 mg PO DAILY 11/03/22 11/03/22 Previous Rx's Medication Instructions Recorded Clopidogrel [Plavix] 75 mg PO DAILY #30 tablet 11/03/22 methylPREDNISolone Dose Pack 4 mg PO DIRECTED #21 tab 01/03/23 [Medrol Dose Pack] Allergies Allergy/AdvReac Type Severity Reaction Status Date / Time No Known Allergies Allergy Verified 01/03/23 22:14 Review of Systems ROS Statement: Those systems with pertinent positive or pertinent negative responses have been documented in the HPI. ROS Other: All systems not noted in ROS Statement are negative. Past Medical History Past Medical History: Cancer, Diabetes Mellitus, Hyperlipidemia, Hypertension Additional Past Medical History / Comment(s): HX HODGKINS LYMPHOMA W/ CHEMO- 2011. hard to walk without sever pain. mild neck pain. tingling in hands and feet, angiogram 09/2022 History of Any Multi-Drug Resistant Organisms: MRSA Date of last positivie culture/infection: 2011 MDRO Source:: SHOULDERS Past Surgical History: Cholecystectomy, Hysterectomy, Orthopedic Surgery, Tubal Ligation Additional Past Surgical History / Comment(s): RT SHOULDER SURGERY. JYOTI OOPHORECTOMY. Past Anesthesia/Blood Transfusion Reactions: No Reported Reaction Past Psychological History: Depression Smoking Status: Current every day smoker Past Alcohol Use History: None Reported Past Drug Use History: None Reported - Past Family History Mother Family Medical History: Cancer Additional Family Medical History / Comment(s): cancer everywhere Brother(s) Family Medical History: Cancer Additional Family Medical History / Comment(s): non hodgkins General Exam Limitations: no limitations General appearance: alert, in no apparent distress Head exam: Present: atraumatic, normocephalic, normal inspection Eye exam: Present: normal appearance, PERRL Pupils: Present: normal accommodation ENT exam: Present: normal exam, normal oropharynx, mucous membranes moist Neck exam: Present: normal inspection, full ROM Respiratory exam: Present: normal lung sounds bilaterally Cardiovascular Exam: Present: regular rate, normal rhythm, normal heart sounds GI/Abdominal exam: Present: soft, normal bowel sounds Extremities exam: Present: normal inspection, full ROM Back exam: Present: normal inspection, full ROM Neurological exam: Present: alert, oriented X3, CN II-XII intact Psychiatric exam: Present: normal affect, normal mood Skin exam: Present: warm, dry Course Vital Signs 01/03/23 22:10 Temperature 97.9 F Pulse Rate 93 Respiratory 20 Rate Blood Pressure 134/68 O2 Sat by Pulse 95 Oximetry Medical Decision Making - Medical Decision Making Was pt. sent in by a medical professional or institution (, PA, [employer], urgent care, hospital, or halfway...) When possible be specific @ -No Did you speak to anyone other than the patient for history (EMS, parent, family, police, friend...)? What history was obtained from this source @ -No Did you review nursing and triage notes (agree or disagree)? Why? @ -I reviewed and agree with nursing and triage notes Were old charts reviewed (outside hosp., previous admission, EMS record, old EKG, old radiological studies, urgent care reports/EKG's, halfway records)? Report findings @ -No old charts were reviewed Differential Diagnosis (chest pain, altered mental status, abdominal pain women, abdominal pain men, vaginal bleeding, weakness, fever, dyspnea, syncope, headache, dizziness, GI bleed, back pain, seizure, CVA, palpatations, mental health)? @ -Respiratory infection, COVID-19, influenza EKG interpreted by me (3pts min.). @ -None X-rays interpreted by me (1pt min.). @ -Chest x-ray was obtained and was interpreted as showing no acute process. CT interpreted by me (1pt min.). @ -None done U/S interpreted by me (1pt. min.). @ -None done What testing was considered but not performed or refused? (CT, X-rays, U/S, labs)? Why? @ -None What meds were considered but not given or refused? Why? @ -None Did you discuss the management of the patient with other professionals (professionals i.e. , PA, [employer] TEACHER, lab, RT, psych nurse, social service worker, pile fabric knitter, teacher, highway patrol officer, bottle caser)? Give summary @ -No Was smoking cessation discussed for >3mins.? @ -Yes Was critical care preformed (if so, how long)? @ -No Were there social determinants of health that impacted care today? How? (Homelessness, low income, unemployed, alcoholism, drug addiction, transportation, low edu. Level, literacy, decrease access to med. care, [facility] [facility], rehab)? @ -No Was there de-escalation of care discussed even if they declined (Discuss DNR or withdrawal of care, Hospice)? DNR status @ -No What co-morbidities impacted this encounter? (DM, HTN, Smoking, COPD, CAD, Cancer, CVA, ARF, Chemo, Hep., AIDS, mental health diagnosis, sleep apnea, morbid obesity)? @ -Hypertension Was patient admitted / discharged? Hospital course, mention meds given and route, prescriptions, significant lab abnormalities, going to OR and other pertinent info. @ -The patient was seen and evaluated emergency department. Physical exam, the patient was resting in bed without any acute distress. Vital signs admission were stable. Swabs for COVID-19, influenza and RSV were negative. Chest x-ray was negative. The patient did receive 1 L no sealing fluid as well as 30 mg of Toradol and on reevaluation stated that she had improvement of her symptoms. The patient likely had an upper respiratory infection as a cause of her symptoms and was given a prescription for Medrol Dosepak. The patient was advised to follow-up with her primary care physician for further workup and evaluation and to report back to the emergency department if her symptoms became acutely worse including worsening shortness of breath. The patient was agreeable to this and all her questions were answered. The patient was discharged home in stable condition. Undiagnosed new problem with uncertain prognosis? @ -No Drug Therapy requiring intensive monitoring for toxicity (Heparin, Nitro, Insulin, Cardizem)? @ -No Were any procedures done? @ -No Diagnosis/symptom? @ -Upper respiratory infection Acute, or Chronic, or Acute on Chronic? @ -Acute Uncomplicated (without systemic symptoms) or Complicated (systemic symptoms)? @ -Uncomplicated Side effects of treatment? @ -No Exacerbation, Progression, or Severe Exacerbation? @ -No Poses a threat to life or bodily function? How? (Chest pain, [place], [place], pneumonia, PE, COPD, DKA, ARF, appy, cholecystitis, CVA, Diverticulitis, Homicidal, Suicidal, threat to staff... and all critical care pts) @ -No - Lab Data Lab Results 01/03/23 Range/Units 22:56 Influenza Type A (PCR) Not Detected (Not Detectd) Influenza Type B (PCR) Not Detected (Not Detectd) RSV (PCR) Not Detected (Not Detectd) SARS-CoV-2 (PCR) Not Detected (Not Detectd) Disposition Clinical Impression: URI (upper respiratory infection) Disposition: HOME SELF-CARE Condition: Stable Instructions (If sedation given, give patient instructions): Upper Respiratory Infection (ED) Prescriptions: methylPREDNISolone Dose Pack [Medrol Dose Pack] 4 mg PO DIRECTED #21 tab Is patient prescribed a controlled substance at d/c from ED?: No Referrals: Darío Fox DO [Primary Care Provider] - 1-2 days Time of Disposition: 23:40
[2023-01-03 23:57] VITALS: BP 129/83; PULSE 76; RESP 16; TEMP 98.1
== END 2023-01-03 23:57 | disposition home or self-care (01) ==
LOC: EC 22:01
DX: J06.9 Acute upper respiratory infection, unspecified (principal); E11.9 Type 2 diabetes mellitus without complications; I10 Essential (primary) hypertension; E78.5 Hyperlipidemia, unspecified; F32.A Depression, unspecified; F17.200 Nicotine dependence, unspecified, uncomplicated; Z20.822 Contact with and (suspected) exposure to COVID-19; Z79.82 Long term (current) use of aspirin; Z79.4 Long term (current) use of insulin; Z79.899 Other long term (current) drug therapy
CPT/HCPCS: 87636; 71046; 99284; 96374; 96375; 96361; J2405; J1885

== ENCOUNTER 2023-06-27 07:55 | Emergency (ER) | payer MEDICARE ==
[2023-06-27 08:14] VITALS: BP 129/81; PULSE 94; RESP 17; TEMP 98.6
--- NOTE | 2023-06-27 08:28 | ED ---
URI HPI - General Chief Complaint: Upper Respiratory Infection Stated Complaint: Ear Pain, Sore Throat Time Seen by Provider: 06/27/23 07:57 Source: patient, RN notes reviewed Mode of arrival: ambulatory Limitations: no limitations - History of Present Illness Initial Comments: 52-year-old female presents emergency Department with chief complaint of jolly estion, ear pain. Patient states she's been sick for last 2 weeks states that she's had increasing nasal congestion, sore throat and mild cough states last night she started developing severe left ear pain mild right ear pain. Patient denies any reported fever. Patient states her hearing is very muffled at this time. - Related Data Home Medications Medication Instructions Recorded Confirmed Escitalopram [Lexapro] 10 mg PO DAILY 09/23/22 10/28/22 Gabapentin 300 mg PO TID 09/23/22 10/28/22 Insulin Glargine,Hum.rec.anlog 45 units SQ W/LUNCH 09/23/22 10/28/22 [Lantus Solostar Pen] Losartan [Cozaar] 25 mg PO HS 09/23/22 10/28/22 Rosuvastatin [Crestor] 5 mg PO HS 09/23/22 10/28/22 Zolpidem [Ambien] 5 mg PO HS PRN 09/23/22 10/28/22 Aspirin 81 mg PO DAILY 11/03/22 11/03/22 Previous Rx's Medication Instructions Recorded Clopidogrel [Plavix] 75 mg PO DAILY #30 tablet 11/03/22 methylPREDNISolone Dose Pack 4 mg PO DIRECTED #21 tab 01/03/23 [Medrol Dose Pack] Amoxicillin 875 mg PO Q12HR #20 tablet 06/27/23 Fluticasone Nasal Alvord [Flonase 2 spr EA NOSTRIL DAILY #16 gm 06/27/23 Nasal Alvord] Allergies Allergy/AdvReac Type Severity Reaction Status Date / Time No Known Allergies Allergy Verified 06/27/23 08:10 Review of Systems ROS Statement: Those systems with pertinent positive or pertinent negative responses have been documented in the HPI. ROS Other: All systems not noted in ROS Statement are negative. Past Medical History Past Medical History: Cancer, Diabetes Mellitus, Hyperlipidemia, Hypertension Additional Past Medical History / Comment(s): HX HODGKINS LYMPHOMA W/ CHEMO- 2011. hard to walk without sever pain. mild neck pain. tingling in hands and feet, angiogram 09/2022 History of Any Multi-Drug Resistant Organisms: MRSA Date of last positivie culture/infection: 2022 MDRO Source:: abdomen Past Surgical History: Cholecystectomy, Hysterectomy, Orthopedic Surgery, Tubal Ligation Additional Past Surgical History / Comment(s): RT SHOULDER SURGERY. JYOTI OOPHORECTOMY. Past Anesthesia/Blood Transfusion Reactions: No Reported Reaction Past Psychological History: Depression Smoking Status: Current every day smoker Past Alcohol Use History: None Reported Past Drug Use History: None Reported - Past Family History Mother Family Medical History: Cancer Additional Family Medical History / Comment(s): cancer everywhere Brother(s) Family Medical History: Cancer Additional Family Medical History / Comment(s): non hodgkins General Exam Limitations: no limitations General appearance: alert, in no apparent distress Head exam: Present: atraumatic, normocephalic, normal inspection Eye exam: Present: normal appearance, PERRL, EOMI. Absent: scleral icterus, conjunctival injection, periorbital swelling ENT exam: Present: mucous membranes moist. Absent: normal exam, TM's normal b ilaterally (Erythematous left, fluid noted bilaterally) Neck exam: Present: normal inspection, full ROM. Absent: tenderness, meningismus, lymphadenopathy Respiratory exam: Present: normal lung sounds bilaterally. Absent: respiratory distress, wheezes, rales, rhonchi, stridor Course Vital Signs 06/27/23 08:11 Temperature 98.6 F Pulse Rate 94 Respiratory 17 Rate Blood Pressure 129/81 O2 Sat by Pulse 98 Oximetry Medical Decision Making - Medical Decision Making Was pt. sent in by a medical professional or institution (, PA, [employer], urgent care, hospital, or [facility]...) When possible be specific @ -No Did you speak to anyone other than the patient for history (EMS, parent, family, police, friend...)? What history was obtained from this source @ -No Did you review nursing and triage notes (agree or disagree)? Why? @ -I reviewed and agree with nursing and triage notes Were old charts reviewed (outside hosp., previous admission, EMS record, old EKG, old radiological studies, urgent care reports/EKG's, [facility] records)? Report findings @ -No old charts were reviewed Differential Diagnosis (chest pain, altered mental status, abdominal pain women, abdominal pain men, vaginal bleeding, weakness, fever, dyspnea, syncope, headache, dizziness, GI bleed, back pain, seizure, CVA, palpatations, mental health, musculoskeletal)? @ -Otitis externa, otitis media, sinusitis, eustachian tube dysfunction EKG interpreted by me (3pts min.). @ -Known X-rays interpreted by me (1pt min.). @ -None done CT interpreted by me (1pt min.). @ -None done U/S interpreted by me (1pt. min.). @ -None done What testing was considered but not performed or refused? (CT, X-rays, U/S, labs)? Why? @ -None What meds were considered but not given or refused? Why? @ -None Did you discuss the management of the patient with other professionals (professionals i.e. , PA, [employer], lab, RT, psych nurse, social work lecturer, nuclear medicine pet ct technologist, teacher, security control room officer, leather case finisher)? Give summary @ -No Was smoking cessation discussed for >3mins.? @ -No Was critical care preformed (if so, how long)? @ -No Were there social determinants of health that impacted care today? How? (Homelessness, low income, unemployed, alcoholism, drug addiction, transportation, low edu. Level, literacy, decrease access to med. care, half-way, rehab)? @ -No Was there de-escalation of care discussed even if they declined (Discuss DNR or withdrawal of care, Hospice)? DNR status @ -No What co-morbidities impacted this encounter? (DM, HTN, Smoking, COPD, CAD, Cancer, CVA, ARF, Chemo, Hep., AIDS, mental health diagnosis, sleep apnea, morbid obesity)? @ -None Was patient admitted / discharged? Hospital course, mention meds given and route, prescriptions, significant lab abnormalities, going to OR and other pe rtinent info. @ -Discharge patient has noted stationary dysfunction, otalgia with left otitis media patient started on amoxicillin, Flonase and decongestant. Return parameters discussed. Undiagnosed new problem with uncertain prognosis? @ -No Drug Therapy requiring intensive monitoring for toxicity (Heparin, Nitro, Insul in, Cardizem)? @ -No Were any procedures done? @ -No Diagnosis/symptom? @ -[Otitis media, eustachian tube dysfunction Acute, or Chronic, or Acute on Chronic? @ -Acute Uncomplicated (without systemic symptoms) or Complicated (systemic symptoms)? @ -Uncomplicated Side effects of treatment? @ -No Exacerbation, Progression, or Severe Exacerbation? @ -No Poses a threat to life or bodily function? How? (Chest pain, [place], [place], pneumonia, PE, COPD, DKA, ARF, appy, cholecystitis, CVA, Diverticulitis, Homicidal, Suicidal, threat to staff... and all critical care pts) @ -No Disposition Clinical Impression: Eustachian tube dysfunction, Otalgia, Otitis media Disposition: HOME SELF-CARE Condition: Stable Instructions (If sedation given, give patient instructions): Barotitis Media (ED) Additional Instructions: Please return to the Emergency Department if symptoms worsen or any other concerns. Prescriptions: Amoxicillin 875 mg PO Q12HR #20 tablet Fluticasone Nasal Alvord [Flonase Nasal Alvord] 2 spr EA NOSTRIL DAILY #16 gm Is patient prescribed a controlled substance at d/c from ED?: No Referrals: Darío Fox DO [Primary Care Provider] - 1-2 days Time of Disposition: 08:28
== END 2023-06-27 08:37 | disposition home or self-care (01) ==
LOC: EC 07:55
DX: H69.93 Unspecified Eustachian tube disorder, bilateral (principal); H66.93 Otitis media, unspecified, bilateral; E11.9 Type 2 diabetes mellitus without complications; E78.5 Hyperlipidemia, unspecified; I10 Essential (primary) hypertension; F32.A Depression, unspecified; F17.200 Nicotine dependence, unspecified, uncomplicated; Z79.82 Long term (current) use of aspirin; Z79.4 Long term (current) use of insulin; Z79.899 Other long term (current) drug therapy
CPT/HCPCS: 99282

== ENCOUNTER → 2024-03-08 | Outpatient (CLI) | payer MEDICARE ==
--- NOTE | 2024-04-04 09:59 | XR ---
Patient: Josselin Kaur L Ordering Physician: Unknown, Unknown ID: [id number] Phone, Pager: Phone: N/ A Pager: N/A : 1970 Age/Gender: 53Y, F Primary Location: N/A Procedure: XR Spine Thoracolumbar 2 Views Study Date: 03/08/2024 11:45:00 AM EXAMINATION TYPE: XR thoracic spine complete DATE OF EXAM: 03/16/2024 1:10 PM CLINICAL INDICATION: Pain COMPARISON: None TECHNIQUE: XR thoracic spine complete views of the spine in Frontal and lateral projections. FINDINGS: No evidence of acute fracture. There is scattered multilevel disk space narrowing without loss of ve rtebral body height. There is normal alignment of the thoracic vertebral bodies. Scattered osteophyte formation along the anterior and lateral aspects of the vertebral bodies. Neural foramen are patent given limitations of this exam. Spinal canal appears patent. IMPRESSION: 1. No acute osseous pathology. 2. Dndy-me-[id number] multilevel degeneration changes of the spine.
--- NOTE | 2024-04-04 10:01 | XR ---
Patient: Josselin Kaur L Ordering Physician: Unknown, Unknown ID: [id number] Phone, Pager: Phone: N/ A Pager: N/A : 1970 Age/Gender: 53Y, F Primary Location: N/A Procedure: XR Spine Cervical 2 or 3 Views Study Date: 03/08/2024 11:40:00 AM EXAMINATION TYPE: XR cervical spine comp DATE OF EXAM: 03/16/2024 1:12 PM CLINICAL INDICATION: Pain COMPARISON: None TECHNIQUE: The cervical spine was imaged in frontal, lateral, odontoid and bilateral oblique. FINDINGS: The osseous structures show normal alignment without evidence of an acute fracture. There are minimal osteophytes noted throughout the cervical spine on the anterior and lateral aspects of the vertebral bodies. The intervertebral disk spaces are narrowed at multiple levels. Pedicles are intact. Soft t issues are within normal limits. The odontoid appears intact. Atherosclerosis at the carotid bifurcat ions. IMPRESSION: 1. No fracture or dislocation. 2. Minimal degenerative disc disease changes of the cervical spine.
== END | disposition home or self-care (01) ==
LOC: RADXRMAIN 11:15
PROVIDERS: ATTEND Family Medicine
DX: M47.24 Other spondylosis with radiculopathy, thoracic region (principal); M47.22 Other spondylosis with radiculopathy, cervical region
CPT/HCPCS: 72040; 72070

== ENCOUNTER → 2024-10-04 | Outpatient (CLI) | payer MEDICARE ==
--- NOTE | 2024-10-04 14:37 | CA ---
Exercise Stress Test Report Name: Josselin Kaur Exam Date: 10/04/2024 12:01 Exam Location: [place] Stress Ht (in): 61 Wt (lb): 176 BSA: 1.79 Ordering Phys: Darío Fox DO Referring Phys: Minerva Mendoza [facility] Technologist: LEESA OCAMPO Age: 54 Gender: F : 1970 Procedure CPT: Indications: I73.9 PERIPHERAL VASCULAR DISEASE, UNSPECIFIED ICD-10 Codes: Patient History: DM, CURRENT TOB. Medications: SEE LIST,,, Meds past 24 hrs: Pretest Chest Pain: STRESS TEST Ba Protocol Exercise Duration (min:sec): 02:[address] Depressions (mm): Angina Score: Orourke Score: Resting HR (bpm): 78 Peak HR (bpm): 122 Resting BP (mmHg): 108 / 66 Peak BP (mmHg): 164 / 56 MPHR: 165 Target HR: 140 % MPHR: 74 METS: 4.7 Total Dose: Peak Dose: Atropine: Double Product: 63797 BP Response: Stress Termination: EXTREME LEG PAIN Stress Symptoms: NO SYMPTOMS Stress Summary: ECG ANALYSIS Resting ECG: Stress ECG: CONCLUSIONS Nondiagnostic stress testing because the patient achieved only 74% of maximum predicted heart rate Dr. Shashank Hall MD (Electronically Signed) Final Date: 04 October 2024 14:37
== END | disposition home or self-care (01) ==
LOC: RADNMMAIN 11:19
PROVIDERS: ATTEND Family Medicine
DX: I73.9 Peripheral vascular disease, unspecified (principal); E11.51 Type 2 diabetes mellitus with diabetic peripheral angiopathy without gangrene; F17.200 Nicotine dependence, unspecified, uncomplicated
CPT/HCPCS: 93017

== ENCOUNTER → 2024-11-15 | Outpatient (CLI) | payer MEDICARE ==
--- NOTE | 2024-11-18 12:00 | MM ---
Reason for Exam: Screening (asymptomatic). Last mammogram was performed 1 year(s) and 8 month(s) ago. Patient History: Menarche at age 11. First Full-Term at age 20. Postmenopausal. Risk Values: Magalys 5 year model risk: 1.1%. NCI Lifetime model risk: 7.4%. Prior Study Comparison: 04/10/2015 Bilateral Diagnostic Mammogram, [facility]. 03/02/2023 Bilateral Screening Mammogram, [facility]. Tissue Density: There are scattered areas of fibroglandular density. Findings: Analyzed By CAD. There are a few tiny benign-appearing round calcifications bilaterally redemonstrated. Benign-appearing bilateral axillary lymph nodes are partially imaged. There is no suspicious group of microcalcifications or new suspicious mass in either breast. Overall Assessment: Benign, BI-RAD 2 Management: Screening Mammogram of both breasts in 1 year. . Patient should continue monthly self-breast exams. A clinical breast exam by your physician is recommended on an annual basis. This exam should not preclude additional follow-up of suspicious palpable abnormalities. Note on Magalys scores and lifetime risk: 1. A Magalys score greater than 3% is considered moderate risk. If this is the case, consider specialist referral to assess eligibility for a risk reducing agent. 2. If overall lifetime risk for the development of breast cancer is 20% or higher, the patient may qualify for future screening with alternating mammogram and breast MRI. [facility], , 11/18/2024 11:57 AM. Electronically signed and approved by: Uvaldo Nelson M.D.
== END | disposition home or self-care (01) ==
LOC: RADMAMWWP 09:06
PROVIDERS: ATTEND Family Medicine
DX: Z12.31 Encounter for screening mammogram for malignant neoplasm of breast (principal); R92.323 Mammographic fibroglandular density, bilateral breasts; R92.1 Mammographic calcification found on diagnostic imaging of breast; Z78.0 Asymptomatic menopausal state
CPT/HCPCS: 77063; 77067